=== PATIENT | female | born 1975 | race Caucasian/White ===

== ENCOUNTER 2021-08-15 07:45 | Outpatient (CLI) | payer OTHER, SELFPAY ==
--- NOTE | 2021-08-15 08:00 | CRLHL7_ITS ---
For Patients: As a result of the Century Cures Act, medical imaging exams and procedure reports are released immediately into your electronic medical record. You may view this report before your referring provider. If you have questions, please contact your health care provider. INDICATION: Abdominal pain TECHNIQUE: CT abdomen and pelvis acquired with out IV contrast. COMPARISON: None FINDINGS: Lower chest: Unremarkable. Liver: Hepatomegaly measures 19.1 centimeters craniocaudal. Fatty infiltration of the liver. Spleen: Unremarkable. Pancreas: Unremarkable. Gallbladder and bile ducts: Unremarkable. Kidneys: Unremarkable. Adrenal glands: Unremarkable. GI tract: Abundant stool within the transverse and right colon. Otherwise, unremarkable. Appendix is normal. Vascular structures: Negative. No sign of aneurysm. Lymph nodes: Unremarkable. Miscellaneous: Small periumbilical hernia containing mesenteric fat which measures approximately 4 centimeters craniocaudal. The neck of the hernia measures 1.1 centimeters. At the ventral midline abdominal wall at the level of S3, there is a soft tissue density with central hypodensity measuring 2.1 by 3.2 by 2.1 centimeters. This finding is incompletely evaluated on noncontrast exam, correlate with clinical concern of hematoma or developing abscess or less likely a soft tissue mass extending from the abdominal wall. Pelvic Organs: Unremarkable. Bones: Unremarkable for age. IMPRESSION: At the ventral midline abdominal wall at the level of S3, there is a soft tissue density with central hypodensity measuring 2.1 by 3.2 by 2.1 centimeters. This finding is incompletely evaluated on noncontrast exam, correlate with clinical concern of postsurgical scar versus hematoma versus developing abscess or less likely a soft tissue mass extending from the abdominal wall. Small periumbilical hernia containing mesenteric fat, neck measures 1.1 centimeters. Hepatomegaly with fatty infiltration of the liver. Please note that all CT scans at this facility use dose modulation, iterative reconstruction, and/or weight-based dosing when appropriate to reduce radiation dose to as low as reasonably achievable. Dictated by Angela Pineda MD @ 08/16/2021 11:39:57 AM (Electronically Signed)
== END 2021-08-15 07:46 | disposition home or self-care (01) ==
LOC: CT 07:48
PROVIDERS: PCP Nurse Practitioner Family; Visit Provider Surgery
DX: R10.9 Unspecified abdominal pain (principal); K42.9 Umbilical hernia without obstruction or gangrene; K76.0 Fatty (change of) liver, not elsewhere classified
CPT/HCPCS: 74176

== ENCOUNTER 2022-03-02 10:23 | Outpatient (CLI) | payer BC, SELFPAY ==
[2022-03-02 13:45] LABS: Chloride* 99 mmol/L (96-114); Potassium* 3.6 mmol/L (3.6-5.1); Sodium* 136 mmol/L (135-149)
[2022-03-02 13:48] LABS: Blood Urea Nitrogen* 15 mg/dL (5-24); Carbon Dioxide* 28 mmol/L (20-32); Cholesterol* 207 mg/dL (90-199); Creatinine* 0.7 mg/dL (0.5-1.5); Estimated Glomerular Filt Rate 108 ml/min; Glucose* 87 mg/dL (60-115)
[2022-03-02 13:49] LABS: Calcium* 9.2 mg/dL (8.4-10.6); HDL Cholesterol* 60 mg/dL (>=50); LDL Cholesterol Calculated 122 mg/dL (<100); Triglycerides* 127 mg/dL (40-149)
== END 2022-03-02 10:24 | disposition home or self-care (01) ==
PROVIDERS: PCP Nurse Practitioner Family; Visit Provider Nurse Practitioner Family
DX: I10 Essential (primary) hypertension (principal); Z13.6 Encounter for screening for cardiovascular disorders
CPT/HCPCS: 80048; 80061

== ENCOUNTER 2023-04-05 08:54 | Outpatient (CLI) | payer BC, SELFPAY | END 2023-04-05 08:55 | disposition home or self-care (01) | PROVIDERS: PCP Nurse Practitioner Family; Visit Provider Nurse Practitioner Family | DX: I10 Essential (primary) hypertension (principal); Z13.0 Encounter for screening for diseases of the blood and blood-forming organs and certain disorders involving the immune mechanism; Z13.6 Encounter for screening for cardiovascular disorders | CPT/HCPCS: 80053; 80061; 85025 ==

== ENCOUNTER 2023-11-26 11:26 | Outpatient (CLI) | payer BC, SELFPAY ==
[2023-11-29 12:49] LABS: HPV Source Cervical; HPV, High Risk by TMA Not Detected
== END 2023-11-26 11:27 | disposition home or self-care (01) ==
PROVIDERS: PCP Nurse Practitioner Family; Visit Provider Nurse Practitioner Family
DX: Z12.4 Encounter for screening for malignant neoplasm of cervix (principal)
CPT/HCPCS: 87624; 87625; 88141; 88142

== ENCOUNTER 2024-03-17 13:55 | Outpatient (CLI) | payer BC, SELFPAY ==
[2024-03-17 15:45] LABS: PCR FLU A Negative PCR FLU A (Negative); PCR FLU B Negative PCR FLU B (Negative); SARS PCR* Negative SARS-CoV-2 (Negative)
== END 2024-03-17 13:56 | disposition home or self-care (01) ==
LOC: KYNREF 13:55
PROVIDERS: PCP Nurse Practitioner Family; Visit Provider Nurse Practitioner Family
DX: J11.1 Influenza due to unidentified influenza virus with other respiratory manifestations (principal)
CPT/HCPCS: 87631

== ENCOUNTER 2024-12-26 08:22 | Outpatient (CLI) | payer BC, SELFPAY | END 2024-12-26 08:23 | disposition home or self-care (01) | PROVIDERS: PCP Nurse Practitioner Family; Visit Provider Nurse Practitioner Family | DX: I10 Essential (primary) hypertension (principal); Z13.0 Encounter for screening for diseases of the blood and blood-forming organs and certain disorders involving the immune mechanism; Z00.00 Encounter for general adult medical examination without abnormal findings | CPT/HCPCS: 80053; 80061; 85025 ==